=== PATIENT | male | born 1965 | race African-American/Black ===

== ENCOUNTER 2021-07-30 15:35 | Emergency (ER) | payer MEDICAID ==
[~2021-07-30] VITALS: Ht 188 cm; Wt 86.2 kg
[2021-07-30] MEDS ORDERED: CLOT15CR27 TP (16:02)
[2021-07-30 16:07] VITALS: BP 143/81
--- NOTE | 2021-07-30 16:15 | NUR ---
A & O x 4, able to communicate needs well, pt c/o groin irritation and itch, MD assessed patient prescribed clotrimazole cream to apply topical to area for 7 days, educated patient on hygien and using wash clothe to wash area daily, twice a day if possible, understood how to apply cream , use of medication treatment, and agreed to cleanse daily with soap and water, amubulated self out of ER, VS all in normal range.
== END 2021-07-30 16:20 | disposition home or self-care (01) ==
LOC: ER 15:40
DX: B35.6 Tinea cruris (principal); F17.200 Nicotine dependence, unspecified, uncomplicated

== ENCOUNTER 2021-09-19 14:17 | Emergency (ER) | payer MEDICAID ==
[~2021-09-19] VITALS: Ht 188 cm; Wt 86.2 kg
[~2021-09-19 14:17] MED LIST: CLOT15CR27 TP
[2021-09-19 14:34] VITALS: BP 116/80
--- NOTE | 2021-09-19 14:38 | NUR ---
SEEN AND EXAMINED BY .
[2021-09-19] MEDS ORDERED: CLOT15CR5 TP (14:50)
--- NOTE | 2021-09-19 14:59 | NUR ---
Patient discharged to home in stable condition. Written and verbal after care instructions given. Patient verbalizes understanding of instruction.
== END 2021-09-19 15:00 | disposition home or self-care (01) ==
LOC: ER 14:28
DX: B35.6 Tinea cruris (principal); F17.200 Nicotine dependence, unspecified, uncomplicated

== ENCOUNTER 2022-02-26 16:41 | Emergency (ER) | payer MEDICAID ==
[~2022-02-26] VITALS: Ht 188 cm; Wt 86.2 kg
[~2022-02-26 16:41] MED LIST changes: +CLOT15CR5 TP
[2022-02-26 16:50] VITALS: BP 126/76
[2022-02-26] MEDS ORDERED: CLOT15CR5 TP (17:02)
== END 2022-02-26 17:13 | disposition home or self-care (01) ==
LOC: ER 16:45
DX: B35.6 Tinea cruris (principal); F17.200 Nicotine dependence, unspecified, uncomplicated; Z79.899 Other long term (current) drug therapy